=== PATIENT | male | born 1955 | race Caucasian/White ===

== ENCOUNTER 2017-12-05 10:16 | Inpatient (IN) | payer OTHER ==
[~2017-12-05] VITALS: Ht 185.4 cm; Wt 189.2 kg
[2017-12-05] MEDS ORDERED: ASPI81CH PO (10:41)
[2017-12-05 11:28] LABS: Hematocrit 45.8 % (37.0-53.0); Hemoglobin 14.7 g/dL (13.5-17.5); Mean Corpuscular HGB 29.5 pg (26.0-34.0); Mean Corpuscular HGB Conc 32.1 g/dL (31.5-36.5); Mean Corpuscular Volume 92 fL (80-100); Mean Platelet Volume 12.4 fL (9.1-12.4); Platelet Count 122 K/mm3 (150-400); RDW Coefficient Variation 15.3 % (11.7-14.2); RDW Standard Deviation 51.3 fL (35.1-46.3); Red Blood Cell Count 4.99 M/mm3 (4.30-5.90); White Blood Cell Count 21.75 K/mm3 (4.00-11.30)
[2017-12-05 11:31] LABS: Albumin/Globulin Ratio 0.7 (0.8-1.8); Bilirubin, Total 0.9 mg/dL (0.1-1.0); Bun/Creatinine Ratio 14.6 (12.0-20.0); Creatinine, Blood 2.19 mg/dL (0.60-1.20); Globulin, Blood 4.2 g/dL (2.2-4.0); Potassium, Blood 4.1 mmol/L (3.5-5.5); Total Protein, Blood 7.2 g/dL (6.4-8.2)
[2017-12-05 12:14] LABS: BAND PERCENT MAN 22 % (0-8); BASOPHILS PERCENT MAN 0 % (0-2); EOSINOPHILS PERCENT MAN 0 % (0-6); LYMPHOCYTES ABSOLUTE MAN 0.43 K/mm3 (0.84-5.20); LYMPHOCYTES PERCENT MAN 2 % (21-46); METAMYELOCYTE ABSOLUTE MAN 1.08 K/mm3 (0.00-0.00); METAMYELOCYTE PERCENT MAN 5 % (0-0); MONOCYTES ABSOLUTE MAN 0.65 K/mm3 (0.16-1.47); MONOCYTES PERCENT MAN 3 % (4-13); NEUTROPHILS ABSOLUTE MAN 19.57 K/mm3 (1.96-9.15); SEG NEUTROPHILS PERCENT MAN 68 % (41-73); TOTAL CELLS COUNTED 100
[2017-12-05] MEDS ORDERED: Hair, Skin & N1 EACH PO (15:45)
[2017-12-06 04:54] LABS: Hematocrit 42.2 % (37.0-53.0); Hemoglobin 13.7 g/dL (13.5-17.5); Mean Corpuscular HGB 29.5 pg (26.0-34.0); Mean Corpuscular HGB Conc 32.5 g/dL (31.5-36.5); Mean Corpuscular Volume 91 fL (80-100); Mean Platelet Volume 12.4 fL (9.1-12.4); Platelet Count 110 K/mm3 (150-400); RDW Coefficient Variation 15.5 % (11.7-14.2); RDW Standard Deviation 50.9 fL (35.1-46.3); Red Blood Cell Count 4.64 M/mm3 (4.30-5.90); White Blood Cell Count 20.37 K/mm3 (4.00-11.30)
[2017-12-06 05:12] LABS: Albumin, Blood 2.6 g/dL (3.4-5.0); Anion Gap 7 mmol/L (6-16); Blood Urea Nitrogen 42 mg/dL (8-24); Bun/Creatinine Ratio 17.2 (12.0-20.0); CO2, Blood 25 mmol/L (21-32); Calcium, Blood 8.3 mg/dL (8.5-10.1); Chloride, Blood 104 mmol/L (98-108); Creatinine, Blood 2.44 mg/dL (0.60-1.20); Glomerular Filtration Rate 29 (60-); Glucose, Blood 74 mg/dL (70-99); Phosphorus, Blood 3.4 mg/dL (2.5-4.9); Potassium, Blood 4.7 mmol/L (3.5-5.5); Sodium, Blood 136 mmol/L (136-145)
[2017-12-07 05:08] LABS: Hematocrit 38.7 % (37.0-53.0); Hemoglobin 12.6 g/dL (13.5-17.5); Mean Corpuscular HGB 29.3 pg (26.0-34.0); Mean Corpuscular HGB Conc 32.6 g/dL (31.5-36.5); Mean Corpuscular Volume 90 fL (80-100); Mean Platelet Volume 11.6 fL (9.1-12.4); Platelet Count 78 K/mm3 (150-400); RDW Coefficient Variation 15.3 % (11.7-14.2); White Blood Cell Count 14.19 K/mm3 (4.00-11.30)
[2017-12-07 05:27] LABS: Albumin, Blood 2.3 g/dL (3.4-5.0); Anion Gap 6 mmol/L (6-16); Blood Urea Nitrogen 51 mg/dL (8-24); Bun/Creatinine Ratio 19.5 (12.0-20.0); CO2, Blood 24 mmol/L (21-32); Calcium, Blood 8.1 mg/dL (8.5-10.1); Chloride, Blood 102 mmol/L (98-108); Creatinine, Blood 2.61 mg/dL (0.60-1.20); Glomerular Filtration Rate 26 (60-); Glucose, Blood 83 mg/dL (70-99); Phosphorus, Blood 2.9 mg/dL (2.5-4.9); Potassium, Blood 4.3 mmol/L (3.5-5.5); Sodium, Blood 132 mmol/L (136-145)
[2017-12-07 11:59] LABS: Source, Urine Clean Catch
[2017-12-07 12:21] LABS: Bilirubin, Urine Neg (Neg); Blood, Urine 4+ (Neg); Glucose Qualitative, Urine Neg (Neg); Ketones, Urine 1+ (Neg); Leukocyte Esterase, Urine Neg (Neg); Nitrite, Urine Neg (Neg); Protein, Urine 2+ (Neg); Specific Gravity, Urine 1.015 (1.003-1.022); Urobilinogen, Urine NORM (Normal)
[2017-12-07 12:34] LABS: Appearance, Urine Clear (Clear); Color, Urine Yellow (P-Yellow)
[2017-12-07 12:37] LABS: Amorphous Mod (0-Heavy); Bacteria Not Seen /hpf; Squamous Epithelial Cells Not Seen /hpf (Few); White Blood Cells, Urine Not Seen /hpf (0-5)
[2017-12-07 16:12] LABS: Eosinophils-Raw #,Urine 0
[2017-12-08 05:40] LABS: BASOPHILS ABSOLUTE AUTO 0.02 K/mm3 (0.00-0.23); BASOPHILS PERCENT AUTO 0 % (0-2); Hematocrit 35.5 % (37.0-53.0); Hemoglobin 11.7 g/dL (13.5-17.5); LYMPHOCYTES ABSOLUTE AUTO 0.57 K/mm3 (0.84-5.20); LYMPHOCYTES PERCENT AUTO 5 % (21-46); MONOCYTES ABSOLUTE AUTO 0.89 K/mm3 (0.16-1.47); MONOCYTES PERCENT AUTO 8 % (4-13); Mean Corpuscular HGB 29.7 pg (26.0-34.0); Mean Corpuscular Volume 90 fL (80-100); Mean Platelet Volume 12.7 fL (9.1-12.4); Platelet Count 72 K/mm3 (150-400); Red Blood Cell Count 3.94 M/mm3 (4.30-5.90); White Blood Cell Count 10.76 K/mm3 (4.00-11.30)
[2017-12-08 05:42] LABS: EOSINOPHILS ABSOLUTE AUTO 0.01 K/mm3 (0.00-0.68); EOSINOPHILS PERCENT AUTO 0 % (0-6); IMMATURE GRAN ABSOLUTE AUTO 0.04 K/mm3 (0.00-0.10); IMMATURE GRAN PERCENT AUTO 0 % (0-1); NEUTROPHILS ABSOLUTE AUTO 9.23 K/mm3 (1.96-9.15); NEUTROPHILS PERCENT AUTO 86 % (41-73)
[2017-12-08 05:53] LABS: Albumin, Blood 2.2 g/dL (3.4-5.0); Anion Gap 7 mmol/L (6-16); Blood Urea Nitrogen 57 mg/dL (8-24); Bun/Creatinine Ratio 22.8 (12.0-20.0); CO2, Blood 23 mmol/L (21-32); CPK Creatine Kinase 807 U/L (39-308); Calcium, Blood 8.2 mg/dL (8.5-10.1); Chloride, Blood 101 mmol/L (98-108); Glomerular Filtration Rate 28 (60-); Glucose, Blood 87 mg/dL (70-99); Phosphorus, Blood 3.4 mg/dL (2.5-4.9); Potassium, Blood 4.3 mmol/L (3.5-5.5); Sodium, Blood 131 mmol/L (136-145)
[2017-12-09 05:17] LABS: Albumin, Blood 2.1 g/dL (3.4-5.0); Anion Gap 9 mmol/L (6-16); Blood Urea Nitrogen 61 mg/dL (8-24); Bun/Creatinine Ratio 21.3 (12.0-20.0); CO2, Blood 24 mmol/L (21-32); Calcium, Blood 8.2 mg/dL (8.5-10.1); Chloride, Blood 101 mmol/L (98-108); Creatinine, Blood 2.87 mg/dL (0.60-1.20); Glomerular Filtration Rate 24 (60-); Glucose, Blood 91 mg/dL (70-99); Phosphorus, Blood 3.9 mg/dL (2.5-4.9); Potassium, Blood 4.3 mmol/L (3.5-5.5); Sodium, Blood 134 mmol/L (136-145)
[2017-12-10 04:50] LABS: Hematocrit 34.6 % (37.0-53.0); Hemoglobin 11.3 g/dL (13.5-17.5); Mean Corpuscular HGB 29.4 pg (26.0-34.0); Mean Corpuscular HGB Conc 32.7 g/dL (31.5-36.5); Mean Corpuscular Volume 90 fL (80-100); Platelet Count 88 K/mm3 (150-400); RDW Coefficient Variation 15.5 % (11.7-14.2); RDW Standard Deviation 50.8 fL (35.1-46.3); Red Blood Cell Count 3.85 M/mm3 (4.30-5.90)
[2017-12-10 05:16] LABS: BAND PERCENT MAN 9 % (0-8); BASOPHILS PERCENT MAN 0 % (0-2); EOSINOPHILS PERCENT MAN 0 % (0-6); LYMPHOCYTES ABSOLUTE MAN 0.96 K/mm3 (0.84-5.20); LYMPHOCYTES PERCENT MAN 9 % (21-46); MONOCYTES ABSOLUTE MAN 1.71 K/mm3 (0.16-1.47); MONOCYTES PERCENT MAN 16 % (4-13); MYELOCYTE PERCENT MAN 1 % (0-0); NEUTROPHILS ABSOLUTE MAN 7.91 K/mm3 (1.96-9.15); SEG NEUTROPHILS PERCENT MAN 65 % (41-73); TOTAL CELLS COUNTED 100
[2017-12-10 05:21] LABS: Albumin, Blood 1.9 g/dL (3.4-5.0); Anion Gap 10 mmol/L (6-16); Blood Urea Nitrogen 61 mg/dL (8-24); Bun/Creatinine Ratio 20.7 (12.0-20.0); CO2, Blood 21 mmol/L (21-32); CPK Creatine Kinase 236 U/L (39-308); Calcium, Blood 8.1 mg/dL (8.5-10.1); Chloride, Blood 103 mmol/L (98-108); Creatinine, Blood 2.95 mg/dL (0.60-1.20); Glomerular Filtration Rate 23 (60-); Glucose, Blood 87 mg/dL (70-99); Phosphorus, Blood 3.7 mg/dL (2.5-4.9); Potassium, Blood 4.4 mmol/L (3.5-5.5); Sodium, Blood 134 mmol/L (136-145); Vancomycin, Trough 19.9 ug/mL (5.0-10.0)
[2017-12-11 05:01] LABS: Hematocrit 38.2 % (37.0-53.0); Hemoglobin 12.1 g/dL (13.5-17.5); Mean Corpuscular HGB 28.8 pg (26.0-34.0); Mean Corpuscular HGB Conc 31.7 g/dL (31.5-36.5); Mean Corpuscular Volume 91 fL (80-100); Mean Platelet Volume 11.2 fL (9.1-12.4); Platelet Count 149 K/mm3 (150-400); RDW Coefficient Variation 15.6 % (11.7-14.2); RDW Standard Deviation 52.7 fL (35.1-46.3); White Blood Cell Count 10.95 K/mm3 (4.00-11.30)
[2017-12-11 05:19] LABS: Anion Gap 9 mmol/L (6-16); Blood Urea Nitrogen 64 mg/dL (8-24); Bun/Creatinine Ratio 20.3 (12.0-20.0); CO2, Blood 22 mmol/L (21-32); Calcium, Blood 8.4 mg/dL (8.5-10.1); Chloride, Blood 102 mmol/L (98-108); Creatinine, Blood 3.15 mg/dL (0.60-1.20); Glomerular Filtration Rate 21 (60-); Glucose, Blood 92 mg/dL (70-99); Phosphorus, Blood 4.3 mg/dL (2.5-4.9); Potassium, Blood 4.8 mmol/L (3.5-5.5); Sodium, Blood 133 mmol/L (136-145)
[2017-12-11 18:19] LABS: Source, Urine Voided
[2017-12-11 18:22] LABS: Appearance, Urine Clear (Clear); Bilirubin, Urine Neg (Neg); Blood, Urine 2+ (Neg); Color, Urine Yellow (P-Yellow); Glucose Qualitative, Urine Neg (Neg); Ketones, Urine Neg (Neg); Leukocyte Esterase, Urine Neg (Neg); Nitrite, Urine Neg (Neg); Protein, Urine Neg (Neg); Urobilinogen, Urine NORM (Normal)
[2017-12-11 18:33] LABS: Amorphous Light (0-Heavy); Bacteria Few /hpf; Red Blood Cells, Urine 0-2 /hpf (0-2); Squamous Epithelial Cells Rare /hpf (Few); White Blood Cells, Urine 0-2 /hpf (0-5)
[2017-12-12 05:31] LABS: Albumin, Blood 1.9 g/dL (3.4-5.0); Anion Gap 12 mmol/L (6-16); Blood Urea Nitrogen 72 mg/dL (8-24); Bun/Creatinine Ratio 19.4 (12.0-20.0); CO2, Blood 19 mmol/L (21-32); Calcium, Blood 8.2 mg/dL (8.5-10.1); Chloride, Blood 101 mmol/L (98-108); Creatinine, Blood 3.72 mg/dL (0.60-1.20); Glomerular Filtration Rate 18 (60-); Glucose, Blood 84 mg/dL (70-99); Phosphorus, Blood 5.9 mg/dL (2.5-4.9); Sodium, Blood 132 mmol/L (136-145)
[2017-12-13 09:56] LABS: Anion Gap 13 mmol/L (6-16); Blood Urea Nitrogen 77 mg/dL (8-24); Bun/Creatinine Ratio 17.3 (12.0-20.0); CO2, Blood 19 mmol/L (21-32); Calcium, Blood 8.1 mg/dL (8.5-10.1); Chloride, Blood 98 mmol/L (98-108); Creatinine, Blood 4.46 mg/dL (0.60-1.20); Glomerular Filtration Rate 14 (60-); Glucose, Blood 87 mg/dL (70-99); Phosphorus, Blood 7.2 mg/dL (2.5-4.9); Potassium, Blood 5.3 mmol/L (3.5-5.5); Sodium, Blood 130 mmol/L (136-145)
[2017-12-14 09:21] LABS: Hematocrit 36.5 % (37.0-53.0); Hemoglobin 11.7 g/dL (13.5-17.5); Mean Corpuscular HGB Conc 32.1 g/dL (31.5-36.5); Mean Corpuscular Volume 90 fL (80-100); Mean Platelet Volume 10.4 fL (9.1-12.4); Platelet Count 282 K/mm3 (150-400); RDW Coefficient Variation 15.8 % (11.7-14.2); Red Blood Cell Count 4.04 M/mm3 (4.30-5.90); White Blood Cell Count 11.09 K/mm3 (4.00-11.30)
[2017-12-14 09:43] LABS: Albumin, Blood 2.1 g/dL (3.4-5.0); Anion Gap 13 mmol/L (6-16); Blood Urea Nitrogen 85 mg/dL (8-24); Bun/Creatinine Ratio 17.6 (12.0-20.0); CO2, Blood 19 mmol/L (21-32); Calcium, Blood 8.3 mg/dL (8.5-10.1); Chloride, Blood 101 mmol/L (98-108); Creatinine, Blood 4.82 mg/dL (0.60-1.20); Glomerular Filtration Rate 13 (60-); Glucose, Blood 78 mg/dL (70-99); Potassium, Blood 5.1 mmol/L (3.5-5.5); Sodium, Blood 133 mmol/L (136-145)
[2017-12-14 09:45] LABS: Phosphorus, Blood 8.7 mg/dL (2.5-4.9)
[2017-12-14 14:49] LABS: BAND PERCENT MAN 2 % (0-8); BASOPHILS ABSOLUTE MAN 0.11 K/mm3 (0.00-0.23); BASOPHILS PERCENT MAN 1 % (0-2); EOSINOPHILS ABSOLUTE MAN 0.11 K/mm3 (0.00-0.68); EOSINOPHILS PERCENT MAN 1 % (0-6); LYMPHOCYTES PERCENT MAN 10 % (21-46); METAMYELOCYTE ABSOLUTE MAN 0.11 K/mm3 (0.00-0.00); METAMYELOCYTE PERCENT MAN 1 % (0-0); MONOCYTES ABSOLUTE MAN 0.44 K/mm3 (0.16-1.47); MONOCYTES PERCENT MAN 4 % (4-13); MYELOCYTE ABSOLUTE MAN 0.44 K/mm3 (0.00-0.00); MYELOCYTE PERCENT MAN 4 % (0-0); NEUTROPHILS ABSOLUTE MAN 8.76 K/mm3 (1.96-9.15); SEG NEUTROPHILS PERCENT MAN 77 % (41-73); TOTAL CELLS COUNTED 100
[2017-12-15 05:41] LABS: Albumin, Blood 1.9 g/dL (3.4-5.0); Anion Gap 13 mmol/L (6-16); Blood Urea Nitrogen 86 mg/dL (8-24); Bun/Creatinine Ratio 17.2 (12.0-20.0); CO2, Blood 18 mmol/L (21-32); Chloride, Blood 102 mmol/L (98-108); Glomerular Filtration Rate 12 (60-); Glucose, Blood 75 mg/dL (70-99); Potassium, Blood 5.2 mmol/L (3.5-5.5); Sodium, Blood 133 mmol/L (136-145)
[2017-12-15 05:49] LABS: Phosphorus, Blood 8.3 mg/dL (2.5-4.9)
[2017-12-16 04:32] LABS: Albumin, Blood 2.1 g/dL (3.4-5.0); Anion Gap 11 mmol/L (6-16); Blood Urea Nitrogen 91 mg/dL (8-24); Bun/Creatinine Ratio 17.6 (12.0-20.0); CO2, Blood 19 mmol/L (21-32); Calcium, Blood 8.2 mg/dL (8.5-10.1); Chloride, Blood 103 mmol/L (98-108); Creatinine, Blood 5.18 mg/dL (0.60-1.20); Glomerular Filtration Rate 12 (60-); Glucose, Blood 75 mg/dL (70-99); Phosphorus, Blood 7.9 mg/dL (2.5-4.9); Potassium, Blood 5.6 mmol/L (3.5-5.5); Sodium, Blood 133 mmol/L (136-145)
[2017-12-16 16:16] LABS: Albumin, Blood 2.1 g/dL (3.4-5.0); Anion Gap 12 mmol/L (6-16); Blood Urea Nitrogen 89 mg/dL (8-24); Bun/Creatinine Ratio 18.3 (12.0-20.0); CO2, Blood 19 mmol/L (21-32); Calcium, Blood 8.1 mg/dL (8.5-10.1); Chloride, Blood 103 mmol/L (98-108); Creatinine, Blood 4.87 mg/dL (0.60-1.20); Glomerular Filtration Rate 13 (60-); Glucose, Blood 86 mg/dL (70-99); Phosphorus, Blood 7.9 mg/dL (2.5-4.9); Potassium, Blood 5.6 mmol/L (3.5-5.5); Sodium, Blood 134 mmol/L (136-145)
[2017-12-17 05:12] LABS: Anion Gap 12 mmol/L (6-16); Blood Urea Nitrogen 86 mg/dL (8-24); Bun/Creatinine Ratio 18.3 (12.0-20.0); CO2, Blood 20 mmol/L (21-32); Calcium, Blood 8.2 mg/dL (8.5-10.1); Chloride, Blood 105 mmol/L (98-108); Creatinine, Blood 4.69 mg/dL (0.60-1.20); Glomerular Filtration Rate 13 (60-); Glucose, Blood 99 mg/dL (70-99); Phosphorus, Blood 7.8 mg/dL (2.5-4.9); Potassium, Blood 4.9 mmol/L (3.5-5.5); Sodium, Blood 137 mmol/L (136-145)
[2017-12-18 06:43] LABS: BASOPHILS ABSOLUTE AUTO 0.02 K/mm3 (0.00-0.23); BASOPHILS PERCENT AUTO 0 % (0-2); EOSINOPHILS ABSOLUTE AUTO 0.19 K/mm3 (0.00-0.68); EOSINOPHILS PERCENT AUTO 2 % (0-6); Hematocrit 31.7 % (37.0-53.0); Hemoglobin 10.4 g/dL (13.5-17.5); IMMATURE GRAN ABSOLUTE AUTO 0.35 K/mm3 (0.00-0.10); IMMATURE GRAN PERCENT AUTO 4 % (0-1); LYMPHOCYTES ABSOLUTE AUTO 1.42 K/mm3 (0.84-5.20); LYMPHOCYTES PERCENT AUTO 17 % (21-46); MONOCYTES ABSOLUTE AUTO 1.23 K/mm3 (0.16-1.47); MONOCYTES PERCENT AUTO 15 % (4-13); Mean Corpuscular HGB 29.3 pg (26.0-34.0); Mean Corpuscular HGB Conc 32.8 g/dL (31.5-36.5); Mean Corpuscular Volume 89 fL (80-100); Mean Platelet Volume 9.8 fL (9.1-12.4); NEUTROPHILS ABSOLUTE AUTO 4.97 K/mm3 (1.96-9.15); NEUTROPHILS PERCENT AUTO 61 % (41-73); Platelet Count 299 K/mm3 (150-400); RDW Coefficient Variation 15.7 % (11.7-14.2); RDW Standard Deviation 51.6 fL (35.1-46.3); Red Blood Cell Count 3.55 M/mm3 (4.30-5.90); White Blood Cell Count 8.18 K/mm3 (4.00-11.30)
[2017-12-18 06:57] LABS: Anion Gap 10 mmol/L (6-16); Blood Urea Nitrogen 77 mg/dL (8-24); Bun/Creatinine Ratio 19.4 (12.0-20.0); CO2, Blood 23 mmol/L (21-32); Calcium, Blood 8.3 mg/dL (8.5-10.1); Chloride, Blood 105 mmol/L (98-108); Creatinine, Blood 3.97 mg/dL (0.60-1.20); Glomerular Filtration Rate 16 (60-); Glucose, Blood 92 mg/dL (70-99); Potassium, Blood 4.8 mmol/L (3.5-5.5); Sodium, Blood 138 mmol/L (136-145)
[2017-12-19 05:02] LABS: Anion Gap 8 mmol/L (6-16); Blood Urea Nitrogen 67 mg/dL (8-24); Bun/Creatinine Ratio 18.6 (12.0-20.0); CO2, Blood 26 mmol/L (21-32); Calcium, Blood 8.3 mg/dL (8.5-10.1); Chloride, Blood 105 mmol/L (98-108); Creatinine, Blood 3.61 mg/dL (0.60-1.20); Glomerular Filtration Rate 18 (60-); Glucose, Blood 85 mg/dL (70-99); Phosphorus, Blood 5.9 mg/dL (2.5-4.9); Sodium, Blood 139 mmol/L (136-145)
[2017-12-20 05:18] LABS: Anion Gap 7 mmol/L (6-16); Blood Urea Nitrogen 59 mg/dL (8-24); Bun/Creatinine Ratio 17.4 (12.0-20.0); CO2, Blood 26 mmol/L (21-32); Calcium, Blood 8.4 mg/dL (8.5-10.1); Chloride, Blood 104 mmol/L (98-108); Creatinine, Blood 3.39 mg/dL (0.60-1.20); Glomerular Filtration Rate 20 (60-); Glucose, Blood 85 mg/dL (70-99); Phosphorus, Blood 5.3 mg/dL (2.5-4.9); Potassium, Blood 5.2 mmol/L (3.5-5.5); Sodium, Blood 137 mmol/L (136-145)
[2017-12-20 11:39] LABS: Antinuclear Antibody Screen Negative (Negative)
[2017-12-20] MEDS ORDERED: ACIDOPHILUS1 EAC2 PO (13:22)
[2017-12-20] MEDS ORDERED: MIRALAX17 GM PO (13:23)
[2017-12-20] MEDS ORDERED: METO25 PO (13:23)
[2017-12-20] MEDS ORDERED: OXYC5 PO (13:24)
[2017-12-20] MEDS ORDERED: CLIN300 PO (13:26)
== END 2017-12-20 14:29 | disposition home or self-care (01) | DRG 871 ==
LOC: ER 10:16 → MEDS 14:07 → ENPENDDIS 12-20 11:00 → MEDS 12-20 14:29
PROVIDERS: Family Medicine; Internal Medicine; Physician Assistant
DX: A40.0 Sepsis due to streptococcus, group A (principal); R65.21 Severe sepsis with septic shock; L03.116 Cellulitis of left lower limb; N17.9 Acute kidney failure, unspecified; E87.2 Acidosis; Z68.42 Body mass index [BMI] 45.0-49.9, adult; Z87.891 Personal history of nicotine dependence; Z79.82 Long term (current) use of aspirin; E66.01 Morbid (severe) obesity due to excess calories; N18.3 Chronic kidney disease, stage 3 (moderate); D69.6 Thrombocytopenia, unspecified; D63.1 Anemia in chronic kidney disease; Z90.5 Acquired absence of kidney; D75.9 Disease of blood and blood-forming organs, unspecified; R04.0 Epistaxis; Z87.442 Personal history of urinary calculi
CPT/HCPCS: 36415; 36416; 73700; 76770; 80053; 80069; 80202; 81001; 82550; 82570; 83605; 84540; 85025; 85027; 86038; 86140; 87040; 87147; 87205; 93922; 93971; 94640; 94760; 94762; 96374; 99285; C9113; J0696; J1650; J1940; J3370; J7030; J7050; J7070

== ENCOUNTER 2018-06-23 12:12 | Emergency (ER) | payer OTHER ==
[~2018-06-23] VITALS: Ht 185.4 cm; Wt 176.9 kg
[~2018-06-23 12:12] MED LIST: ACIDOPHILUS1 EAC2 PO; ASPI81CH PO; CLIN300 PO; Hair, Skin & N1 EACH PO; METO25 PO; MIRALAX17 GM PO; OXYC5 PO
[2018-06-23] MEDS ORDERED: AMLO5 PO (16:48)
[2018-06-23] MEDS ORDERED: LEVFLO500 PO (17:41)
== END 2018-06-23 17:51 | disposition home or self-care (01) ==
LOC: ER 12:12
DX: J18.9 Pneumonia, unspecified organism (principal); I50.9 Heart failure, unspecified; Z79.899 Other long term (current) drug therapy; Z79.82 Long term (current) use of aspirin; Z87.891 Personal history of nicotine dependence
CPT/HCPCS: 71046; 84484; 93005; 93010; 99284-25

== ENCOUNTER 2018-08-13 08:06 | Day surgery (SDC) | payer OTHER ==
[~2018-08-13] VITALS: Ht 185.4 cm; Wt 170.4 kg
[~2018-08-13 08:06] MED LIST changes: +AMLO5 PO; +LEVFLO500 PO; +PENVK500 PO
[2018-08-13] MEDS ORDERED: TORSE20 PO (08:35)
--- NOTE | 2018-08-13 10:45 | NUR ---
PT VISITING WITH DAUGHTER. DENIES PAIN OR NEEDS. VSS. CALL LIGHT IN REACH. RIGHT RADIAL SITE CDI, NO BLEEDING OR SWELLING TO AREA.
--- NOTE | 2018-08-13 10:58 | NUR ---
[facility] ALL MEDS, VITAL SIGNS AND AIRWAY MANAGED BY [facility].
--- NOTE | 2018-08-13 12:18 | NUR ---
PT EATING LUNCH, DENIES DISCOMFORT, NEEDS. CALL LIGHT IN REACH. VSS. PT HAS AMBULATED TO THE BATHROOM WITHOUT DIFFICULTY. DENIES DYSPNEA, DIZZINESS.
--- NOTE | 2018-08-13 13:45 | NUR ---
TR BAND HAS BEEN FULLY DEFLATED. RIGHT RADIAL SITE CDI, NO BLEEDING, BRUISING, OR SWELLING NOTED. PT WATCHING MOVIES ON HIS TABLET. DENIES CURRENT PAIN, NEEDS. CALL LIGHT IN REACH.
--- NOTE | 2018-08-13 15:06 | NUR ---
PT HAS VERBALIZED UNDERSTANDING OF DC INSTRUCTIONS AND FOLLOW UP INFO. IV DC'D, CATH INTACT. PT OUT OF DEPARTMENT VIA W/C. DENIES ANY DISCOMFORT/QUESTIONS AT TIME OF DISCHARGE.
== END 2018-08-13 15:00 | disposition home or self-care (01) ==
LOC: MHTC 08:06
DX: I35.0 Nonrheumatic aortic (valve) stenosis (principal); G47.33 Obstructive sleep apnea (adult) (pediatric); E66.01 Morbid (severe) obesity due to excess calories; I12.9 Hypertensive chronic kidney disease with stage 1 through stage 4 chronic kidney disease, or unspecified chronic kidney disease; N18.9 Chronic kidney disease, unspecified; I25.10 Atherosclerotic heart disease of native coronary artery without angina pectoris; I77.819 Aortic ectasia, unspecified site
CPT/HCPCS: 93454; C1769; C1894; J1644; J2001; J7030; J7120; Q9967

== ENCOUNTER 2019-02-11 20:25 | Emergency (ER) | payer OTHER ==
[~2019-02-11] VITALS: Ht 185.4 cm; Wt 174.6 kg
[~2019-02-11 20:25] MED LIST changes: +TORSE20 PO
[2019-02-12] MEDS ORDERED: CEPH500 PO (01:50)
== END 2019-02-12 02:24 | disposition home or self-care (01) ==
LOC: ER 20:25
DX: S81.812A Laceration without foreign body, left lower leg, initial encounter (principal); W26.9XXA Contact with unspecified sharp object(s), initial encounter; Z79.899 Other long term (current) drug therapy; Z79.82 Long term (current) use of aspirin
CPT/HCPCS: 12002; 90471; 90714; 99282; A9270; A9270-GY

== ENCOUNTER 2019-03-15 12:03 | Day surgery (SDC) | payer MEDICARE, BC ==
[~2019-03-15 12:03] MED LIST changes: +CEPH500 PO
== END 2019-03-15 22:42 | disposition home or self-care (01) ==
LOC: WOUND 12:03
DX: L97.821 Non-pressure chronic ulcer of other part of left lower leg limited to breakdown of skin (principal); I87.2 Venous insufficiency (chronic) (peripheral); I12.0 Hypertensive chronic kidney disease with stage 5 chronic kidney disease or end stage renal disease; N18.6 End stage renal disease; D63.1 Anemia in chronic kidney disease; Z87.891 Personal history of nicotine dependence
CPT/HCPCS: G0463

== ENCOUNTER 2019-03-22 00:58 | Day surgery (SDC) | payer MEDICARE, BC | END 2019-03-22 23:25 | disposition home or self-care (01) | LOC: WOUND 00:58 | DX: L97.821 Non-pressure chronic ulcer of other part of left lower leg limited to breakdown of skin (principal); I87.2 Venous insufficiency (chronic) (peripheral); I12.9 Hypertensive chronic kidney disease with stage 1 through stage 4 chronic kidney disease, or unspecified chronic kidney disease; N18.3 Chronic kidney disease, stage 3 (moderate); N25.81 Secondary hyperparathyroidism of renal origin; Z90.5 Acquired absence of kidney ==

== ENCOUNTER 2019-03-29 02:00 | Day surgery (SDC) | payer MEDICARE, BC | END 2019-03-29 22:59 | disposition home or self-care (01) | LOC: WOUND 02:00 | DX: L97.821 Non-pressure chronic ulcer of other part of left lower leg limited to breakdown of skin (principal); I87.2 Venous insufficiency (chronic) (peripheral); I12.0 Hypertensive chronic kidney disease with stage 5 chronic kidney disease or end stage renal disease; N18.6 End stage renal disease; D63.1 Anemia in chronic kidney disease; N25.81 Secondary hyperparathyroidism of renal origin ==

== ENCOUNTER 2019-04-05 01:06 | Day surgery (SDC) | payer MEDICARE, BC | END 2019-04-05 22:55 | disposition home or self-care (01) | LOC: WOUND 01:06 | DX: L97.822 Non-pressure chronic ulcer of other part of left lower leg with fat layer exposed (principal); I87.2 Venous insufficiency (chronic) (peripheral); I12.0 Hypertensive chronic kidney disease with stage 5 chronic kidney disease or end stage renal disease; N18.6 End stage renal disease; D63.1 Anemia in chronic kidney disease | CPT/HCPCS: G0463 ==

== ENCOUNTER 2019-04-19 12:48 | Day surgery (SDC) | payer MEDICARE, BC | END 2019-04-19 23:46 | disposition home or self-care (01) | LOC: WOUND 12:48 | DX: Z09 Encounter for follow-up examination after completed treatment for conditions other than malignant neoplasm (principal); I87.2 Venous insufficiency (chronic) (peripheral); I12.0 Hypertensive chronic kidney disease with stage 5 chronic kidney disease or end stage renal disease; N18.6 End stage renal disease; D63.1 Anemia in chronic kidney disease; Z87.2 Personal history of diseases of the skin and subcutaneous tissue | CPT/HCPCS: G0463 ==

== ENCOUNTER 2021-04-15 10:45 | Observation (INO) | payer MEDICARE, BC ==
[~2021-04-15] VITALS: Ht 185.4 cm; Wt 190.5 kg
[~2021-04-15 10:45] MED LIST changes: -ASPI81CH PO; +Aspir 8181 MG PO; -METO25 PO
[2021-04-15] MEDS ORDERED: VALSARTAN80 MG PO (11:05)
[2021-04-15 11:21] LABS: BASOPHILS ABSOLUTE AUTO 0.03 K/mm3 (0.00-0.23); BASOPHILS PERCENT AUTO 0 % (0-2); EOSINOPHILS ABSOLUTE AUTO 0.22 K/mm3 (0.00-0.68); EOSINOPHILS PERCENT AUTO 3 % (0-6); Hematocrit 45.2 % (37.0-53.0); Hemoglobin 14.7 g/dL (13.5-17.5); IMMATURE GRAN ABSOLUTE AUTO 0.04 K/mm3 (0.00-0.10); IMMATURE GRAN PERCENT AUTO 1 % (0-1); LYMPHOCYTES PERCENT AUTO 17 % (21-46); MONOCYTES PERCENT AUTO 10 % (4-13); Mean Corpuscular HGB 30.2 pg (26.0-34.0); Mean Corpuscular HGB Conc 32.5 g/dL (31.5-36.5); Mean Corpuscular Volume 93 fL (80-100); Mean Platelet Volume 12.5 fL (9.1-12.4); NEUTROPHILS ABSOLUTE AUTO 5.09 K/mm3 (1.96-9.15); NEUTROPHILS PERCENT AUTO 70 % (41-73); Platelet Count 123 K/mm3 (150-400); RDW Standard Deviation 47.9 fL (35.1-46.3); Red Blood Cell Count 4.86 M/mm3 (4.30-5.90); White Blood Cell Count 7.28 K/mm3 (4.00-11.30)
[2021-04-15 11:36] LABS: Albumin, Blood 3.4 g/dL (3.4-5.0); Albumin/Globulin Ratio 0.8 (0.8-1.8); Bilirubin, Total 0.5 mg/dL (0.1-1.0); Bun/Creatinine Ratio 23.4 (12.0-20.0); Calcium, Blood 9.8 mg/dL (8.5-10.1); Creatinine, Blood 1.75 mg/dL (0.60-1.20); Potassium, Blood 4.7 mmol/L (3.5-5.5); Total Protein, Blood 7.4 g/dL (6.4-8.2)
[2021-04-15 11:57] LABS: International Normalized Ratio 1.01; Prothrombin Time Results 10.6 Sec (9.7-11.5)
[2021-04-15] MEDS ORDERED: METO25 PO (13:27)
--- NOTE | 2021-04-15 18:19 | NUR ---
SHIFT SUMMARYY ED ADMIT THIS AFTERNOON. PATIENT SETTLED INTO ROOM. DENIES PAIN, NAUSEA, AND SHORTNESS OF BREATH. PATIENT UP SBA TO CHAIR/BSC. REPORTS MILD NUMBESS TO RIGHT EXTREMITIES THAT IS RESOLVING. ALERT AND ORIENTED. PLEASANT AND COOPERATIVE WITH CARE.
[2021-04-16 04:32] LABS: Hematocrit 39.3 % (37.0-53.0); Hemoglobin 13.1 g/dL (13.5-17.5); Mean Corpuscular HGB Conc 33.3 g/dL (31.5-36.5); Mean Corpuscular Volume 93 fL (80-100); Mean Platelet Volume 12.6 fL (9.1-12.4); Platelet Count 104 K/mm3 (150-400); RDW Coefficient Variation 13.8 % (11.7-14.2); RDW Standard Deviation 47.3 fL (35.1-46.3); Red Blood Cell Count 4.23 M/mm3 (4.30-5.90); White Blood Cell Count 7.28 K/mm3 (4.00-11.30)
[2021-04-16 04:57] LABS: Anion Gap 5 mmol/L (6-16); Blood Urea Nitrogen 36 mg/dL (8-24); Bun/Creatinine Ratio 22.5 (12.0-20.0); CHOL/HDL RATIO 3.8; CO2, Blood 27 mmol/L (21-32); Calcium, Blood 9.2 mg/dL (8.5-10.1); Chloride, Blood 110 mmol/L (98-108); Cholesterol 165 mg/dL (50-200); Glomerular Filtration Rate 43 (60-); Glucose, Blood 88 mg/dL (70-99); HDL Cholesterol 43 mg/dL (>39); LDL/HDL RATIO 1.7; Low Density Lipoprotein Chol 71 mg/dL (0-110); Potassium, Blood 4.4 mmol/L (3.5-5.5); Sodium, Blood 142 mmol/L (136-145); Triglycerides 254 mg/dL (30-160); Very Low Density Lipoprot Chol 50 mg/dL (6-32)
--- NOTE | 2021-04-16 05:26 | NUR ---
Tho had a good night last night. only sequela fromo yesterday's event was some right hand weakness and tingling, and it's "feeling like otis". tongue does seem to deviate to right, but otherwise WNL from a Neuro check stand point. No complaints of pain/pressure, or generalized discomfort
--- NOTE | 2021-04-16 12:22 | NUR ---
Discussed heart healthy and CKD diet recommendations with pt. Discussed choosing unsaturated fats over saturated fats, reducing sodium content in diet, eating more fiber/whole grains, and wt loss. Pt identified reducing potato chip intake as a first goal for improving diet quality. Pt plans to look for whole grain and low sodium versions of foods he typically eats. Pt feels confident in his ability to make these changes and recognizes the importance of lifestyle changes for improving health.
[2021-04-16] MEDS ORDERED: ATOR80 PO (13:08)
[2021-04-16] MEDS ORDERED: CLOP75 PO (13:09)
--- NOTE | 2021-04-16 15:35 | NUR ---
DISCHARGE NOTE PATIENT WAS DISCHARGED HOME VIA WHEELCHAIR WITH DAUGHTER. PATIENT RECEIVED AND VERBALIZED UNDERSTANDING OF DISCHARGE INSTRUCTIONS MEDICATIONS AND PLAN FOR FOLLOW UP CARE. PATIENT'S BELONGINGS WERE WITH THE PATIENT WHEN THEY LEFT. VITAL SIGNS STABLE AT DISCHARGE.
== END 2021-04-16 13:58 | disposition home or self-care (01) ==
LOC: ER 10:45 → MEDS 10:46
PROVIDERS: Nurse Practitioner Acute Care; Physician Assistant; ADMIT Internal Medicine
DX: G45.9 Transient cerebral ischemic attack, unspecified (principal); I35.0 Nonrheumatic aortic (valve) stenosis; I12.9 Hypertensive chronic kidney disease with stage 1 through stage 4 chronic kidney disease, or unspecified chronic kidney disease; N18.30 Chronic kidney disease, stage 3 unspecified; L03.90 Cellulitis, unspecified; G47.33 Obstructive sleep apnea (adult) (pediatric); E66.01 Morbid (severe) obesity due to excess calories; Z68.43 Body mass index [BMI] 50.0-59.9, adult; Z87.891 Personal history of nicotine dependence
CPT/HCPCS: 36415; 70450; 80048; 80053; 80061; 82947; 83036; 85025; 85027; 85610; 93005; 93010; 93306; 93880; 97110; 97165; A9270

== ENCOUNTER 2021-08-30 09:26 | Inpatient (IN) | payer MEDICARE, BC ==
[~2021-08-30] VITALS: Ht 185.4 cm; Wt 183.0 kg
[~2021-08-30 09:26] MED LIST changes: +ATOR80 PO; +CLOP75 PO; +METO25 PO; +VALSARTAN80 MG PO
[2021-08-30 10:58] LABS: BASOPHILS ABSOLUTE AUTO 0.02 K/mm3 (0.00-0.23); BASOPHILS PERCENT AUTO 0 % (0-2); EOSINOPHILS ABSOLUTE AUTO 0.08 K/mm3 (0.00-0.68); EOSINOPHILS PERCENT AUTO 1 % (0-6); Hematocrit 31.9 % (37.0-53.0); Hemoglobin 9.4 g/dL (13.5-17.5); IMMATURE GRAN ABSOLUTE AUTO 0.04 K/mm3 (0.00-0.10); IMMATURE GRAN PERCENT AUTO 1 % (0-1); LYMPHOCYTES ABSOLUTE AUTO 0.92 K/mm3 (0.84-5.20); LYMPHOCYTES PERCENT AUTO 13 % (21-46); MONOCYTES ABSOLUTE AUTO 0.97 K/mm3 (0.16-1.47); MONOCYTES PERCENT AUTO 13 % (4-13); Mean Corpuscular HGB 28.1 pg (26.0-34.0); Mean Corpuscular HGB Conc 29.5 g/dL (31.5-36.5); Mean Corpuscular Volume 96 fL (80-100); Mean Platelet Volume 10.4 fL (9.1-12.4); NEUTROPHILS ABSOLUTE AUTO 5.28 K/mm3 (1.96-9.15); NEUTROPHILS PERCENT AUTO 72 % (41-73); Platelet Count 286 K/mm3 (150-400); RDW Coefficient Variation 14.8 % (11.7-14.2); RDW Standard Deviation 51.5 fL (35.1-46.3); Red Blood Cell Count 3.34 M/mm3 (4.30-5.90); White Blood Cell Count 7.31 K/mm3 (4.00-11.30)
[2021-08-30 11:04] LABS: International Normalized Ratio 1.09; Prothrombin Time Results 11.4 Sec (9.7-11.5)
[2021-08-30 11:05] LABS: Albumin, Blood 2.9 g/dL (3.4-5.0); Albumin/Globulin Ratio 0.8 (0.8-1.8); Bilirubin, Total 0.5 mg/dL (0.1-1.0); Bun/Creatinine Ratio 13.8 (12.0-20.0); Creatinine, Blood 1.96 mg/dL (0.60-1.20); Globulin, Blood 3.8 g/dL (2.2-4.0); Magnesium, Blood 2.4 mg/dL (1.6-2.4); Potassium, Blood 3.8 mmol/L (3.5-5.5); Total Protein, Blood 6.7 g/dL (6.4-8.2)
[2021-08-30] MEDS ORDERED: AMIODARONE HCL200 MG PO (14:00)
[2021-08-30] MEDS ORDERED: METO25ER PO (14:02)
[2021-08-30] MEDS ORDERED: DILTIAZEM 24HR240 M5 PO (14:03)
[2021-08-30] MEDS ORDERED: ALBU90OI INH (14:05)
[2021-08-30] MEDS ORDERED: FAMO20 PO (17:24)
[2021-08-30] MEDS ORDERED: ACET500 PO (17:26)
[2021-08-30] MEDS ORDERED: VALS80 PO (17:27)
--- NOTE | 2021-08-30 18:27 | NUR ---
END OF SHIFT: PATIENT IS A RECENT ADMISSION FROM ED, ALERT AND ORIENTED X 4, PLEASANT. SBA FOR AMBULATION, WAS ABLE TO TRANSGER TO THE BATHROOM BY SELF. NO FLUIDS INFUSING, PATIENT IS CURRENTLY RECIEVING DIURETICS. PATIENT IS IN AFLUTTER WITH A RIGHT BUNDLE BRANCH BLOCK 2:1 WITH OCCASSIONAL PVCS., TWO EKG'S DONE IN ED TODAY. MAG GIVEN IV IN ED, PATIENT SEEMS TO BE FLUID OVERLOADED HAS BEEN RECIVEING DIURETICS. CRACKLES IN THE LEFT MIDDLE AND LOWER LOBES, WITH COARSENESS IN THE UPPER LOBES. RIGHT MIDDLE LOBE POSSIBLY SOME CRACKLES. ON RA NO INCREASED OXYGEN DEMAND AT THIS TIME. CHEST INCISION SITE IS HEALING WELL BUT STILL PAINFUL, MEDICATED PER EMAR. NO CONCERNS FOR THIS PATIENT AT THIS TIME. WILL CONTINUE TO MONITOR.
--- NOTE | 2021-08-30 23:05 | NUR ---
2145 BETA FRANCISCA HELD DUE TO LOW B/P.CONTINUE TO MONITOR PATIENT CONDITION.
[2021-08-31 04:15] LABS: BASOPHILS ABSOLUTE AUTO 0.02 K/mm3 (0.00-0.23); BASOPHILS PERCENT AUTO 0 % (0-2); EOSINOPHILS ABSOLUTE AUTO 0.14 K/mm3 (0.00-0.68); EOSINOPHILS PERCENT AUTO 2 % (0-6); Hematocrit 30.6 % (37.0-53.0); IMMATURE GRAN ABSOLUTE AUTO 0.03 K/mm3 (0.00-0.10); IMMATURE GRAN PERCENT AUTO 1 % (0-1); LYMPHOCYTES PERCENT AUTO 19 % (21-46); MONOCYTES PERCENT AUTO 14 % (4-13); Mean Corpuscular HGB Conc 29.4 g/dL (31.5-36.5); Mean Corpuscular Volume 95 fL (80-100); Mean Platelet Volume 10.2 fL (9.1-12.4); NEUTROPHILS ABSOLUTE AUTO 4.09 K/mm3 (1.96-9.15); NEUTROPHILS PERCENT AUTO 64 % (41-73); Platelet Count 247 K/mm3 (150-400); RDW Coefficient Variation 14.8 % (11.7-14.2); RDW Standard Deviation 51.7 fL (35.1-46.3); Red Blood Cell Count 3.21 M/mm3 (4.30-5.90); White Blood Cell Count 6.38 K/mm3 (4.00-11.30)
[2021-08-31 04:37] LABS: Albumin, Blood 2.8 g/dL (3.4-5.0); Albumin/Globulin Ratio 0.7 (0.8-1.8); Bilirubin, Total 0.9 mg/dL (0.1-1.0); Bun/Creatinine Ratio 13.6 (12.0-20.0); Creatinine, Blood 2.06 mg/dL (0.60-1.20); Globulin, Blood 3.8 g/dL (2.2-4.0); Potassium, Blood 4.3 mmol/L (3.5-5.5); Total Protein, Blood 6.6 g/dL (6.4-8.2)
--- NOTE | 2021-08-31 04:56 | NUR ---
PATIENT REMAINS ALERT AND FOLLOW COMMANDS. VITAL STSROLIC WAS IN THE LOW 90'S BETA FRANCISCA HELD. PATIENT AFEBRILE, MEDICATED TIMES 2 FOR PAIN AND CONTROLLED. PATIENT CONTINET OF BLADDER AND BOWEL. SURGICAL SITE TO MIDLINE OF CHEST OPEN TO AIR, NO SIGNS OF INFECTION OR DISCHARGE NOTED FROM SITE. CIPAP AT BEDSIDE. RESPIRATORY PLACED ONCE PATTIENT WAS PLACED IN BED. FREQUENT ROUNDS TO ENSURE PATIENT SAFETY. PATIENT REPOSITION NEEDED FOR COMFORTED.PATIENT IN RUSSELL DISTRESS. WILL CONTINUE TO MONITOR PATIENT CONDITION UNTIL ONCOMING RN.
--- NOTE | 2021-08-31 17:48 | NUR ---
SHIFT SUMMARY PT A&O X4. VSS. MONITOR SHOWING AFLUTTER, HR 115-120's. SCHEDULED PO METOPROLOL & CARDIZEM HELD TODAY D/T BP BELOW PARAMETERS. SPO2 > 92% ON RA. LUNG SOUNDS COARSE T/O. RT PROVIDING BREATHING TXs. PT W/ OCCASSIONAL COUGH, REQUIRING PILLOW SPLINTING OVER HEALING CHEST INCISION. PRN PO OXYCODONE GIVEN X1 PER EMAR/PT REQUEST TODAY FOR INCISION PAIN W/ PT REPORT OF IMPROVEMENT & "STAYING AHEAD OF PAIN." PT @ BEDSIDE TODAY. PT UP IN RECLINER CHAIR MAJORITY OF DAY, ABLE TO INDEPENDENTLY TRANSFER. PT CONSULTED BY CARDIOLOGY TODAY & NOW AWAITING ECHO.
[2021-09-01 04:25] LABS: BASOPHILS ABSOLUTE AUTO 0.02 K/mm3 (0.00-0.23); BASOPHILS PERCENT AUTO 0 % (0-2); EOSINOPHILS ABSOLUTE AUTO 0.19 K/mm3 (0.00-0.68); EOSINOPHILS PERCENT AUTO 3 % (0-6); Hematocrit 31.4 % (37.0-53.0); Hemoglobin 9.3 g/dL (13.5-17.5); IMMATURE GRAN ABSOLUTE AUTO 0.02 K/mm3 (0.00-0.10); IMMATURE GRAN PERCENT AUTO 0 % (0-1); LYMPHOCYTES ABSOLUTE AUTO 1.48 K/mm3 (0.84-5.20); LYMPHOCYTES PERCENT AUTO 23 % (21-46); MONOCYTES ABSOLUTE AUTO 0.83 K/mm3 (0.16-1.47); MONOCYTES PERCENT AUTO 13 % (4-13); Mean Corpuscular HGB Conc 29.6 g/dL (31.5-36.5); Mean Corpuscular Volume 95 fL (80-100); Mean Platelet Volume 10.4 fL (9.1-12.4); NEUTROPHILS ABSOLUTE AUTO 3.96 K/mm3 (1.96-9.15); NEUTROPHILS PERCENT AUTO 61 % (41-73); Platelet Count 243 K/mm3 (150-400); RDW Coefficient Variation 14.6 % (11.7-14.2); RDW Standard Deviation 50.6 fL (35.1-46.3); Red Blood Cell Count 3.32 M/mm3 (4.30-5.90)
[2021-09-01 04:52] LABS: Bun/Creatinine Ratio 15.5 (12.0-20.0); Creatinine, Blood 2.07 mg/dL (0.60-1.20); Potassium, Blood 4.1 mmol/L (3.5-5.5)
--- NOTE | 2021-09-01 05:35 | NUR ---
PATIENT REMAINS ALERT AND FOLLOW COMMAND. PATIENT ABLE TO MOVE ROUND WITHOUT ASSISTANCE. VITAL STABLE. NO COMPLAINTS VOICED, ARSH GIVEN SCHEDULED. URINE OUTPUT CLEAR YELLOW. PATIENT SCHEDULE ECHO IN A.M. FREQUENT ROUNDS TO ENSURE PATIENT SAFETY. PATIENT REPOSITIONED DIRECTED. OFFLOAD TO PREVENT PRESSURE ULCER. CONTINUE TO MONITOR PATIENT CONDITION UNTI ONCOMING RN
--- NOTE | 2021-09-01 19:30 | NUR ---
SHIFT SUMMARY PT A&O X4. VSS. MONITOR SHOWING AFLUTTER, HR 100-120's. SPO2 > 92% ON RA. NO EVENTS TODAY. REPORT GIVEN TO REHAB LIAISON RN.
--- NOTE | 2021-09-01 23:35 | NUR ---
PATIENT REMAINS ALERT AND ORIENTED TIMES 4. FOLLOW COMMANDS. NO SIGNS OF ACUTE DISTRESS. ECHO DONE TODAY AND EF 55-60%. LOVENOX CONTINUE IN USED. PATIENT ABLE TO MOVE SELF FROM CHAIR TO BED. CONTINUE TO MONITOR PATIENT CONDITION. SAFETY MAINTAINED.
[2021-09-02 04:14] LABS: Bun/Creatinine Ratio 17.4 (12.0-20.0); Creatinine, Blood 2.07 mg/dL (0.60-1.20)
[2021-09-02 08:41] LABS: Percent Saturation 15.3 % (20.0-50.0)
--- NOTE | 2021-09-02 18:08 | NUR ---
SHIFT SUMMARY PT A/O X4 AND COOPERATIVE OF CARE. VSS THROUGHOUT SHIFT WITH O2 SATS >94% ON RA. BILAT PEDAL PULSES HEARD USING DOPPLER. PT A-FIB/ A-FLUTTER THROUGHOUT SHIFT, NO REPORT OF CHEST PAIN/PRESSURE. NO REPORT OF SOB/DYSPNEA THROUGHOUT SHIFT. PT UP TO TOILET MULTIPLE TIMES, SBA, TOLERATED WELL. PT REPORTED PAIN R/T INCISION ON CHEST, TREATED PER EMAR. PT REAMINED ON 12OOML FLUID RESTRICTION. PT HAD AUDIBLE CRACKLES NOTED DURING SHIFT, BREATHING TREATMENTS FROM RT HELP TO CLEAR. PT STARTED ON DIGOXIN TODAY.
--- NOTE | 2021-09-03 06:09 | NUR ---
SHIFT SUMMARY ASSUMED CARE OF PT AT 1900. PT IS A/OX4. INDEPENDNT IN ROOM. HEART SOUNDS IRREGULAR, PT HAS BEEN IN AFLUTTER T/O THE NIGHT. LUNG SOUNDS COURSE WITH A HACKING COUGH. PT C/O PAIN IN HIS STERNUM, MEDICATED PER EMAR. NO ACUTE EVENTS OVER NIGHT.
[2021-09-03 09:08] LABS: Bun/Creatinine Ratio 18.3 (12.0-20.0); Calcium, Blood 9.2 mg/dL (8.5-10.1); Creatinine, Blood 1.86 mg/dL (0.60-1.20); Potassium, Blood 3.9 mmol/L (3.5-5.5)
[2021-09-03] MEDS ORDERED: DIGOX250 MCG PO (14:01)
[2021-09-03] MEDS ORDERED: METO50ER PO (14:01)
[2021-09-03] MEDS ORDERED: VISBIOME 112.51 EACH PO (14:02)
[2021-09-03] MEDS ORDERED: DOXY100 PO (14:02)
--- NOTE | 2021-09-03 15:00 | NUR ---
Discharge Summary: Pt discharged home. Discharge instructions provided, pt verbalized understanding. All belongings sent home with pt. No apparent distress noted at this time.
== END 2021-09-03 15:28 | disposition home or self-care (01) | DRG 308 ==
LOC: ER 09:26 → PCU 15:13
PROVIDERS: Internal Medicine Interventional Cardiology; Student in an Organized Health Care Education/Training Program; ADMIT Internal Medicine
DX: I48.91 Unspecified atrial fibrillation (principal); J18.9 Pneumonia, unspecified organism; N18.30 Chronic kidney disease, stage 3 unspecified; I12.9 Hypertensive chronic kidney disease with stage 1 through stage 4 chronic kidney disease, or unspecified chronic kidney disease; G47.33 Obstructive sleep apnea (adult) (pediatric); Z86.73 Personal history of transient ischemic attack (TIA), and cerebral infarction without residual deficits; Z95.2 Presence of prosthetic heart valve; Z09 Encounter for follow-up examination after completed treatment for conditions other than malignant neoplasm; Z86.718 Personal history of other venous thrombosis and embolism; Z90.5 Acquired absence of kidney; Z98.890 Other specified postprocedural states; Z79.899 Other long term (current) drug therapy; Z79.02 Long term (current) use of antithrombotics/antiplatelets; Z79.82 Long term (current) use of aspirin; Z87.891 Personal history of nicotine dependence; E87.70 Fluid overload, unspecified
CPT/HCPCS: 36415; 71046; 71260; 80048; 80053; 80162; 82728; 83540; 83550; 83735; 83880; 84484; 85025; 85379; 85610; 85730; 93005; 93010; 93306; 93970; 94640; 94760; 96365-59; 96366; 96367-59; 96375; 99285-25; A9270; J0696; J1650; J1940; J2270; J2916; J3475; J7030; J7050; Q9967

== ENCOUNTER 2021-09-11 13:35 | Emergency (ER) | payer MEDICARE, BC ==
[~2021-09-11] VITALS: Ht 185.4 cm; Wt 174.6 kg
[~2021-09-11 13:35] MED LIST changes: +ACET500 PO; +ALBU90OI INH; +AMIODARONE HCL200 MG PO; +DIGOX250 MCG PO; +DILTIAZEM 24HR240 M5 PO; +DOXY100 PO; +FAMO20 PO; +METO25ER PO; +METO50ER PO; +VALS80 PO; +VISBIOME 112.51 EACH PO
[2021-09-11 14:24] LABS: BASOPHILS ABSOLUTE AUTO 0.04 K/mm3 (0.00-0.23); BASOPHILS PERCENT AUTO 0 % (0-2); EOSINOPHILS ABSOLUTE AUTO 0.19 K/mm3 (0.00-0.68); EOSINOPHILS PERCENT AUTO 2 % (0-6); Hematocrit 34.4 % (37.0-53.0); Hemoglobin 10.4 g/dL (13.5-17.5); IMMATURE GRAN ABSOLUTE AUTO 0.06 K/mm3 (0.00-0.10); IMMATURE GRAN PERCENT AUTO 1 % (0-1); LYMPHOCYTES ABSOLUTE AUTO 1.47 K/mm3 (0.84-5.20); LYMPHOCYTES PERCENT AUTO 15 % (21-46); MONOCYTES ABSOLUTE AUTO 0.88 K/mm3 (0.16-1.47); MONOCYTES PERCENT AUTO 9 % (4-13); Mean Corpuscular HGB 28.1 pg (26.0-34.0); Mean Corpuscular HGB Conc 30.2 g/dL (31.5-36.5); Mean Corpuscular Volume 93 fL (80-100); Mean Platelet Volume 10.4 fL (9.1-12.4); NEUTROPHILS ABSOLUTE AUTO 7.01 K/mm3 (1.96-9.15); NEUTROPHILS PERCENT AUTO 73 % (41-73); Platelet Count 262 K/mm3 (150-400); RDW Coefficient Variation 15.1 % (11.7-14.2); RDW Standard Deviation 51.1 fL (35.1-46.3); White Blood Cell Count 9.65 K/mm3 (4.00-11.30)
[2021-09-11 14:43] LABS: Albumin/Globulin Ratio 0.7 (0.8-1.8); Bilirubin, Total 0.4 mg/dL (0.1-1.0); Bun/Creatinine Ratio 25.8 (12.0-20.0); Calcium, Blood 9.4 mg/dL (8.5-10.1); Creatinine, Blood 1.63 mg/dL (0.60-1.20); Globulin, Blood 4.2 g/dL (2.2-4.0); Potassium, Blood 4.4 mmol/L (3.5-5.5); Total Protein, Blood 7.2 g/dL (6.4-8.2)
[2021-09-11] MEDS ORDERED: DILTIAZEM 24HR240 M3 PO (14:58)
== END 2021-09-11 17:24 | disposition home or self-care (01) ==
LOC: ER 13:35
PROVIDERS: Physician Assistant
DX: J95.89 Other postprocedural complications and disorders of respiratory system, not elsewhere classified (principal); R53.1 Weakness; I48.91 Unspecified atrial fibrillation; N18.30 Chronic kidney disease, stage 3 unspecified; Z79.899 Other long term (current) drug therapy
CPT/HCPCS: 36415; 71045; 80053; 83880; 84484; 85025; 93005; 93010; 99285-25

== ENCOUNTER 2022-10-22 14:17 | Emergency (ER) | payer MEDICARE, BC ==
[~2022-10-22] VITALS: Ht 185.4 cm; Wt 172.4 kg
[~2022-10-22 14:17] MED LIST changes: +DILTIAZEM 24HR240 M3 PO; +Voltaren100 GM TOP
[2022-10-22 14:26] VITALS: BP 186/98
[2022-10-22] MEDS ORDERED: BUME1 PO (15:38)
[2022-10-22] MEDS ORDERED: CEPH500 PO ×2 (16:26)
[2022-10-22] MEDS ORDERED: DOXY100 PO ×2 (16:26)
== END 2022-10-22 16:37 | disposition home or self-care (01) ==
LOC: ER 14:17
DX: S80.11XA Contusion of right lower leg, initial encounter (principal); I48.91 Unspecified atrial fibrillation; N18.30 Chronic kidney disease, stage 3 unspecified; G47.33 Obstructive sleep apnea (adult) (pediatric); Z79.899 Other long term (current) drug therapy; Z79.82 Long term (current) use of aspirin; Z86.73 Personal history of transient ischemic attack (TIA), and cerebral infarction without residual deficits; Z86.718 Personal history of other venous thrombosis and embolism; W22.8XXA Striking against or struck by other objects, initial encounter
CPT/HCPCS: 10060; 99283-25; A9270

== ENCOUNTER 2022-10-27 02:51 | Day surgery (SDC) | payer MEDICARE, BC ==
[~2022-10-27 02:51] MED LIST changes: +BUME1 PO
== END 2022-10-27 23:20 | disposition home or self-care (01) ==
LOC: WOUND 02:51
DX: S81.801D Unspecified open wound, right lower leg, subsequent encounter (principal); S80.11XD Contusion of right lower leg, subsequent encounter; X58.XXXD Exposure to other specified factors, subsequent encounter; I73.9 Peripheral vascular disease, unspecified; I87.2 Venous insufficiency (chronic) (peripheral); I12.9 Hypertensive chronic kidney disease with stage 1 through stage 4 chronic kidney disease, or unspecified chronic kidney disease; N18.9 Chronic kidney disease, unspecified; N25.81 Secondary hyperparathyroidism of renal origin; Z87.891 Personal history of nicotine dependence; G47.30 Sleep apnea, unspecified
CPT/HCPCS: A9270; G0463

== ENCOUNTER 2022-11-07 02:13 | Day surgery (SDC) | payer MEDICARE, BC | END 2022-11-07 22:50 | disposition home or self-care (01) | LOC: WOUND 02:13 | DX: S81.801A Unspecified open wound, right lower leg, initial encounter (principal); N18.9 Chronic kidney disease, unspecified; I12.9 Hypertensive chronic kidney disease with stage 1 through stage 4 chronic kidney disease, or unspecified chronic kidney disease; N25.81 Secondary hyperparathyroidism of renal origin; D63.1 Anemia in chronic kidney disease; I73.9 Peripheral vascular disease, unspecified; I87.2 Venous insufficiency (chronic) (peripheral) | CPT/HCPCS: A9270; G0463 ==

== ENCOUNTER 2022-11-21 01:28 | Day surgery (SDC) | payer MEDICARE, BC | END 2022-11-21 22:52 | disposition home or self-care (01) | LOC: WOUND 01:28 | DX: S81.801D Unspecified open wound, right lower leg, subsequent encounter (principal); S80.11XD Contusion of right lower leg, subsequent encounter; I73.9 Peripheral vascular disease, unspecified; I87.2 Venous insufficiency (chronic) (peripheral); X58.XXXD Exposure to other specified factors, subsequent encounter | CPT/HCPCS: A9270; G0463 ==

== ENCOUNTER 2022-11-29 02:40 | Day surgery (SDC) | payer MEDICARE, BC | END 2022-11-29 23:04 | disposition home or self-care (01) | LOC: WOUND 02:40 | DX: S81.801D Unspecified open wound, right lower leg, subsequent encounter (principal); S80.11XD Contusion of right lower leg, subsequent encounter; X58.XXXD Exposure to other specified factors, subsequent encounter; I73.9 Peripheral vascular disease, unspecified; I87.2 Venous insufficiency (chronic) (peripheral) | CPT/HCPCS: G0463 ==

== ENCOUNTER 2022-12-05 03:50 | Day surgery (SDC) | payer MEDICARE, BC | END 2022-12-05 22:53 | disposition home or self-care (01) | LOC: WOUND 03:50 | DX: S81.801D Unspecified open wound, right lower leg, subsequent encounter (principal); S80.11XD Contusion of right lower leg, subsequent encounter; I73.9 Peripheral vascular disease, unspecified; I87.2 Venous insufficiency (chronic) (peripheral) | CPT/HCPCS: G0463 ==

== ENCOUNTER 2022-12-12 00:21 | Day surgery (SDC) | payer MEDICARE, BC | END 2022-12-12 23:00 | disposition home or self-care (01) | LOC: WOUND 00:21 | DX: S81.801D Unspecified open wound, right lower leg, subsequent encounter (principal); I73.9 Peripheral vascular disease, unspecified; I87.2 Venous insufficiency (chronic) (peripheral); N18.9 Chronic kidney disease, unspecified; N25.81 Secondary hyperparathyroidism of renal origin; S80.11XD Contusion of right lower leg, subsequent encounter | CPT/HCPCS: G0463 ==